=== PATIENT | male | born 1955 | race Caucasian/White ===

== ENCOUNTER 2023-02-25 12:38 | Outpatient (CLI) | payer MEDICARE, BC ==
[2023-02-25 14:28] LABS: #Basophils 0.1 10x3/uL (0.0-0.2); #Eosinphils 0.1 10x3/uL (0.0-0.5); #Monocytes 0.8 10x3/uL (0.0-1.1); #Neutrophils 2.7 10x3/uL (1.5-8.4); %Basophils 1.9 % (0.0-2.0); %Eosinophils 1.7 % (0.0-6.0); %Lymphocytes 36.7 % (18.0-47.0); %Monocytes 13.6 % (0.0-10.0); %Neutrophils 45.8 % (40.0-75.0); Hematocrit 46.8 % (38.8-50.0); Hemoglobin 15.6 g/dL (13.5-17.5); Mean Corpuscular HGB CONC 33.3 g/dL (32.0-36.0); Mean Corpuscular Hemoglobin 30.8 pg (27.0-33.0); Mean Corpuscular Volume 92.3 fl (81.2-95.1); Mean Platelet Volume 10.4 fl (7.4-10.4); Platelet Count 250 10x3/uL (150-450); Red Blood Cell (RBC) Count 5.07 10x6/uL (4.32-5.72); White Blood Cell (WBC) Count 5.8 10x3/uL (3.5-10.5)
[2023-02-25 14:44] LABS: ALT (SGPT) 33 U/L (8-55); AST (SGOT) 24 U/L (5-34); Albumin 4.3 g/dL (3.4-4.8); Alkaline Phosphatase 60 U/L (40-110); Anion Gap 13 mmol/L (10-20); BUN (Urea Nitrogen) 17 mg/dL (8.4-25.7); Bilirubin, Total 0.6 mg/dL (0.2-1.2); Calc. Creatinine Clearance 0 mL/min (70-130); Calcium 9.4 mg/dL (7.8-10.44); Carbon Dioxide 27 mmol/L (23-31); Chloride 103 mmol/L (98-107); Estimated GFR 86; Globulin 2.2 g/dL (2.4-3.5); Glucose 88 mg/dL (80-115); Potassium 4.7 mmol/L (3.5-5.1); Protein, Total 6.5 g/dL (5.8-8.1); Sodium 138 mmol/L (136-145)
== END 2023-02-25 12:39 | disposition home or self-care (01) ==
LOC: LABBT 12:38
PROVIDERS: ATTEND Surgery
DX: Z01.818 Encounter for other preprocedural examination (principal); K40.90 Unilateral inguinal hernia, without obstruction or gangrene, not specified as recurrent
CPT/HCPCS: 80053; 85025; 93005; 93010

== ENCOUNTER 2023-04-28 14:12 | Outpatient (CLI) | payer MEDICARE, BC ==
[2023-04-28 15:18] LABS: #Basophils 0.1 10x3/uL (0.0-0.2); #Eosinphils 0.2 10x3/uL (0.0-0.5); #Monocytes 0.8 10x3/uL (0.0-1.1); #Neutrophils 2.5 10x3/uL (1.5-8.4); %Basophils 1.8 % (0.0-2.0); %Eosinophils 3.8 % (0.0-6.0); %Lymphocytes 40.7 % (18.0-47.0); %Monocytes 12.5 % (0.0-10.0); %Neutrophils 40.9 % (40.0-75.0); Hematocrit 47.1 % (38.8-50.0); Hemoglobin 15.3 g/dL (13.5-17.5); Mean Corpuscular HGB CONC 32.5 g/dL (32.0-36.0); Mean Corpuscular Hemoglobin 29.9 pg (27.0-33.0); Mean Platelet Volume 9.8 fl (7.4-10.4); Platelet Count 266 10x3/uL (150-450); RBC Distribution Width 11.9 % (11.5-14.5); Red Blood Cell (RBC) Count 5.12 10x6/uL (4.32-5.72)
== END 2023-04-28 14:13 | disposition home or self-care (01) ==
LOC: LABBT 14:12
PROVIDERS: ATTEND Surgery
DX: Z01.818 Encounter for other preprocedural examination (principal); K40.91 Unilateral inguinal hernia, without obstruction or gangrene, recurrent
CPT/HCPCS: 85025; 93005; 93010

== ENCOUNTER 2023-05-05 06:02 | Day surgery (SDC) | payer MEDICARE, BC ==
[2023-04-28 14:34] VITALS: BMI 25.8
[2023-05-05] MEDS ORDERED: fentaNYL PF 100 MCG/2 ML SYRINGE ONE (06:38)
[2023-05-05] MEDS ORDERED: PROPOFOL 40 ML ONE (06:39)
[2023-05-05] MEDS ORDERED: Rocuronium Bromide 10 MG/ML (10ML VIAL) ONE (06:41)
[2023-05-05] MEDS ORDERED: Lidocaine 1% PF 5 ML VIAL ONE ×2 (06:41→07:37)
[2023-05-05] MEDS ORDERED: EPINEPHrine 1 MG/ML VIAL ONE (06:50)
[2023-05-05] MEDS ORDERED: Bupivacaine 0.25% HCL 30 ML VIAL ONE (06:51)
[2023-05-05] MEDS ORDERED: Sodium Chloride 0.9% 100 ML ONE (07:22)
[2023-05-05] MEDS ORDERED: Famotidine/PF 20 mg/2ml Vial ONE (07:22)
[2023-05-05] MEDS ORDERED: CEFAZOLIN 2 GM VIAL ONE (07:22)
[2023-05-05] MEDS ORDERED: Dexamethasone 20 MG/5 ML VIAL ONE ×2 (07:37→07:40)
[2023-05-05] MEDS ORDERED: Ketorolac Tromethamine 30 MG/ML VIAL ONE ×2 (07:37→08:21)
[2023-05-05] MEDS ORDERED: PROPOFOL 200 MG/20 ML VIAL ONE (07:37)
[2023-05-05] MEDS ORDERED: ePHEDrine Sulfate 50 MG/10 ML VIAL ONE ×2 (07:37→08:25)
[2023-05-05] MEDS ORDERED: Ondansetron PF 4 MG/2 ML Vial ONE ×2 (07:37→08:20)
[2023-05-05] MEDS ORDERED: Tamsulosin HCl 0.4 MG CAP ONE (08:57)
== END 2023-05-05 10:51 | disposition home or self-care (01) ==
LOC: SDC 06:02
PROVIDERS: ATTEND Surgery
PROC: 0YQ50ZZ Repair Right Inguinal Region, Open Approach (ICD-10-PCS; principal; 2023-05-05)
DX: K40.91 Unilateral inguinal hernia, without obstruction or gangrene, recurrent (principal); N43.3 Hydrocele, unspecified; E78.5 Hyperlipidemia, unspecified; Z90.49 Acquired absence of other specified parts of digestive tract
CPT/HCPCS: 49520; J0171; C1781; J1100; J1885; J2405; J2704; J3490; S0020; S0028